=== PATIENT | female | born 1940 | race Caucasian/White ===

== ENCOUNTER → 2018-10-26 | Outpatient (CLI) | payer MEDICARE ==
[2015-12-21 15:10] VITALS: BP 141/71
[~2018-10-26] MED LIST: DULO30CA2 PO; ZOLP12.52 PO
--- NOTE | 2018-10-26 16:22 | KCIC ---
Bone densitometry 10/26/2018 11:30 AM Indication: Evaluate for osteoporosis. Screening exam Comparison Study: None. Discussion: Bone Densitometry was performed with dual photon absorption of the lumbar spine and proximal femurs. Lumbar Spine: Bone average density is 0.798g/cm2 for L1-L4. T-Score is -2.3. Left femoral neck: Bone average density is 0.663g/cm2. T-Score is -2.3. IMPRESSION: Osteopenia. Fracture risk is high. Post therapeutic follow-up exam recommended Note: Definitions established by the World Health Organization: Normal: T-score is -1.0 or above. Osteopenia: T-score is between -1.0 and -2.5. Osteoporosis: T-score is -2.5 or below. Electronically signed by: Alonzo Starr MD (10/26/2018 4:19 PM) [id number]
== END | disposition home or self-care (01) ==
LOC: KCIC DEXA 11:36
PROVIDERS: ATTEND Orthopaedic Surgery
DX: Z13.820 Encounter for screening for osteoporosis (principal); M85.88 Other specified disorders of bone density and structure, other site
CPT/HCPCS: 77080